=== PATIENT | female | born 1970 | race Caucasian/White ===

== ENCOUNTER 2020-11-30 09:45 | Emergency (ER) | payer OTHER, SELFPAY ==
--- NOTE | ~2020-11-30 | XR_ITS ---
XR ribs RT 2V w CXR 2V DATE: 11/30/2020 10:20 INDICATION: Fall. Lateral right sided chest injury, pain TECHNIQUE: PA and lateral chest. 3 views of the right ribs. COMPARISON: 12/08/2015 2 view chest FINDINGS: Right cervical rib. Old healed posterolateral right third through sixth rib fractures. No recent right rib fracture is noted. Normal heart size. No hilar or mediastinal enlargement. No pulmonary infiltrate or consolidation, pleural effusion or pulmonary vascular congestion or pneumo thorax. IMPRESSION: Old posterolateral right third through sixth rib fractures No recent right rib fracture is noted Right cervical rib No active cardiopulmonary disease Reviewed, dictated and finalized at location B. [facility] [employer]
[2020-11-30 09:48] VITALS: BP 161/80; PULSE 80; RESP 18; TEMP 36.7; O2SAT 100
[2020-11-30] MEDS: KETOROLAC 30 MG/ML VIAL (*BKC) IM (11:38)
--- NOTE | 2020-11-30 11:42 | ED.GENADULT ---
HPI - General Adult General Chief complaint: Fall Stated complaint: fall Time Seen by Provider: 11/30/20 10:10 Source: patient Mode of arrival: ambulatory Limitations: no limitations History of Present Illness HPI narrative: Patient presents with chief complaint of right rib and chest pain after sliding on black ice on the sidewalk prior to arrival and falling onto the area. Patient reports she feels some soreness with breathing but no shortness of breath. Patient reports tenderness with palpation to the area under the right breast. She denies any head impact, loss of consciousness, change in vision or hearing, nausea, vomiting, chest pain or any other symptoms. Patient reports she did fall and injured the area in [facility] many years ago but denies any known fractures or other injuries. Patient states that she is a daily smoker. Related Data Allergies Allergy/AdvReac Type Severity Reaction Status Date / Time No Known Allergies Allergy Mild Verified 07/13/17 12:22 Review of Systems Review of Systems: Narrative: CONSTITUTIONAL: Denies fever, chills, or sweats. EYES: Denies visual changes, redness, or discharge. ENT: Denies rhinorrhea, congestion, sore throat, or otalgia. CARDIOVASCULAR: Reports right rib and chest wall pain denies chest pain, palpitations, or edema. RESPIRATORY: Denies cough or dyspnea. GASTROINTESTINAL: Denies abdominal pain, nausea, vomiting, or diarrhea. GENITOURINARY: Denies dysuria or hematuria. SKIN: Denies rash or itching. MUSCULOSKELETAL: Denies back pain, joint pain, or myalgia. NEUROLOGIC: Denies headache, numbness, dizziness, or weakness. PSYCHIATRIC: Denies anxiety or depression. [facility] Family History Family History (Updated 11/29/18 @ 10:10 by DOCTOR UNKNOWN) Father Hypertension Family history of elevated blood lipids Grandparent Cerebrovascular accident Family history of Parkinson's disease Family history of chronic obstructive pulmonary disease Family history of Alzheimer's disease Family history of emphysema Family history of dementia Other Carcinoma of colon Diabetes mellitus Family history of hypercholesterolemia Family history of seizure disorder Social History Social History Smoking status: Smoker, status unknown Alcohol intake: current Exam Narrative: Exam Narrative: GENERAL: Well-appearing, well-nourished, and in no acute distress. HEAD: Normocephalic, atraumatic. EYES: PERRLA and EOMI. NECK: Supple. No adenopathy or masses. No carotid bruits or JVD CHEST: Tenderness to palpation under right breast and laterally. clear to auscultation. No respiratory distress. No wheezes rales or rhonchi. No flail chesting noted. HEART: Regular rate and rhythm. No murmur heard. Normal peripheral pulses. ABDOMEN: Soft, nontender, nondistended, normal active bowel sounds. EXTREMITIES: Normal range of motion. No edema. SKIN: Warm, dry, no rash. NEURO: No focal deficits. Alert and oriented x3. PSYCH: Normal mood and affect. Course Vital Signs Vital signs: Vital Signs Temperature 98.1 F 11/30/20 09:48 Pulse Rate 80 11/30/20 09:48 Respiratory Rate 18 11/30/20 09:48 Blood Pressure 161/80 H 11/30/20 09:48 Pulse Oximetry 100 11/30/20 09:48 Temperature 98.1 F 11/30/20 09:48 Pulse Rate 80 11/30/20 09:48 Respiratory Rate 18 11/30/20 09:48 Blood Pressure 161/80 H 11/30/20 09:48 Pulse Oximetry 100 11/30/20 09:48 Medical Decision Making MDM Narrative Medical decision making narrative: All fractures were noted on x-ray but not any acute fractures. Discussed with patient the old fractures noted and she states she fell previously injuring the area but did not know that the ribs are broken. Patient is not having any shortness of breath or difficulty taking deep breaths. Patient does have some soreness to the area. Discussed the importance of taking this. Discussed smoking cessation discussed following up with her primary care if
== END 2020-11-30 12:04 | disposition home or self-care (01) ==
PROVIDERS: Emergency Provider Emergency Medicine; PCP Family Medicine
DX: S20.211A Contusion of right front wall of thorax, initial encounter (principal); S23.41XA Sprain of ribs, initial encounter; W00.0XXA Fall on same level due to ice and snow, initial encounter
CPT/HCPCS: 71046; 71100; 96372; 99283; J1885

== ENCOUNTER 2023-03-19 07:07 | Day surgery (SDC) | payer OTHER, SELFPAY ==
[2023-03-05 09:59] VITALS: BMI 30.8
[2023-03-19 07:40] VITALS: BP 153/108; PULSE 68; RESP 20; TEMP 36.7; O2SAT 100
[2023-03-19] MEDS: LACTATED RINGERS 1,000 ML 150 ML IV CONT (08:13)
--- NOTE | 2023-03-19 08:24 | WPDANESEPPF ---
Anes - Initial Pre Proc Eval Procedure: Operation Date: 03/19/23 09:00 Proposed Procedures p Screening Colonoscopy - Deni Amezquita MD Date/Time: 03/19/23 08:24 Surgeon: Deni Amezquita MD Pre Op Diagnosis: Neoplam Screening Patient Data Age: 52 Gender: F Height: 1.65 m Weight: 84.3 kg Last Vital Signs Temp 36.7 C 03/19/23 07:40 Pulse 68 03/19/23 07:40 Resp 20 03/19/23 07:40 BP 153/108 H 03/19/23 07:40 Pulse Ox 100 03/19/23 07:40 O2 Del Method Room Air 03/19/23 07:40 Allergies Allergy/AdvReac Type Severity Reaction Status Date / Time No Known Allergies Allergy Mild Verified 03/19/23 08:08 Home Medications Medication Instructions Recorded Confirmed Type naproxen 500 mg tablet 500 mg PO BID PRN pain #20 tabs 11/30/20 03/19/23 Rx sodium,potassium,mag sulfates 17.5 See Rx Instructions PO .COMPLEX 02/12/23 03/19/23 Rx gram-3.13 gram-1.6 gram oral soln #354 mL (Suprep Bowel Prep Kit) Patient hx anesthesia problems: none Family hx anesthesia problems: none Results Review: All pre-operative results and documents have been reviewed as part of the pre-operative evaluation. [facility] Past Medical History Medical History BMI 27.0-27.9,adult BMI 30.0-30.9,adult Essential hypertension Screen for colon cancer Screening for lipid disorders Screening mammogram, encounter for Tobacco abuse Surgical History Surgical History (Updated 03/19/23 @ 08:27 by Raul Singh MD) H/O wrist surgery History of tubal ligation Family History Family History Father Hypertension Family history of elevated blood lipids Grandparent Cerebrovascular accident Family history of Parkinson's disease Family history of chronic obstructive pulmonary disease Family history of Alzheimer's disease Family history of emphysema Family history of dementia Other Carcinoma of colon Diabetes mellitus Family history of hypercholesterolemia Family history of seizure disorder Social History Social History Years smoked: 20 Smoking status: Current every day smoker Tobacco type: cigarettes Alcohol intake: current Substance use: never Substance use type: does not use Lack of Transportation: No Lack of Food: Never True Current Housing: I Have Housing Concerned About Future Housing: No Difficulty Paying Gas/Electric Bills: No Difficulty Paying for Meds: No Currently Unemployed: No Education: Trade/Vocational Certificate Difficulty w/ Childcare or Family Care: No Living arrangements: with family Spiritual care concerns: No Anes - Eval Final PreProcedure Day of Procedure 03/19/23 08:24 Patient weight: obese Heart: regular rate and rhythm Lungs: clear to auscultation Airway: Mallampati scale class II Neurological: alert and oriented Last oral intake: >/= 8 hours ASA classification: II Emergent: no Anesthetic plan: proceed Anesthesia type and monitoring: general GIVS and standard monitoring Results Review: All pre-operative results and documents have been reviewed as part of the pre-operative evaluation. Informed Consent: The patient's anesthetic plan and its attendant risks and benefits were discussed with the patient/family/POA. Questions were solicited and answers provided to the satisfaction of the patient/family/POA.
--- NOTE | 2023-03-19 08:28 | PM.HPGS ---
History of Present Illness History of Present Illness Consent: Risks, benefits, and alternatives have been discussed and questions answered. Patient agrees to proceed with procedure. Chief complaint: Neoplam Screening Narrative: Ashly Greene is a 52 year old female Presents for screening colonoscopy. Patient's current weight appetite and bowel movements are normal. Patient denies abdominal pain. She has had no bleeding. Family history is significant that her mother had colon cancer. Review of Systems Review of Systems: Review of systems noncontributory. [facility] Past Medical History Medical History BMI 27.0-27.9,adult BMI 30.0-30.9,adult Essential hypertension Screen for colon cancer Screening for lipid disorders Screening mammogram, encounter for Tobacco abuse Surgical History Surgical History (Updated 03/19/23 @ 08:27 by Raul Singh MD) H/O wrist surgery History of tubal ligation Family History Family History Father Hypertension Family history of elevated blood lipids Grandparent Cerebrovascular accident Family history of Parkinson's disease Family history of chronic obstructive pulmonary disease Family history of Alzheimer's disease Family history of emphysema Family history of dementia Other Carcinoma of colon Diabetes mellitus Family history of hypercholesterolemia Family history of seizure disorder Social History Social History Years smoked: 20 Smoking status: Current every day smoker Tobacco type: cigarettes Alcohol intake: current Substance use: never Substance use type: does not use Lack of Transportation: No Lack of Food: Never True Current Housing: I Have Housing Concerned About Future Housing: No Difficulty Paying Gas/Electric Bills: No Difficulty Paying for Meds: No Currently Unemployed: No Education: Trade/Vocational Certificate Difficulty w/ Childcare or Family Care: No Living arrangements: with family Spiritual care concerns: No Meds Home Medications and Allergies Home Medications Medication Instructions Recorded Confirmed Type naproxen 500 mg tablet 500 mg PO BID PRN pain #20 tabs 11/30/20 03/19/23 Rx sodium,potassium,mag sulfates 17.5 See Rx Instructions PO .COMPLEX 02/12/23 03/19/23 Rx gram-3.13 gram-1.6 gram oral soln #354 mL (Suprep Bowel Prep Kit) Allergies Allergy/AdvReac Type Severity Reaction Status Date / Time No Known Allergies Allergy Mild Verified 03/19/23 08:08 Vital Signs Vital Signs - 24 hr 03/19/23 07:40 Temperature 98.0 F Pulse Rate 68 Respiratory Rate 20 Blood Pressure 153/108 H Pulse Oximetry 100 Oxygen Delivery Room Air Exam Narrative: Physical exam reveals patient to be alert. Vital signs stable. HEENT exam is unremarkable. Patient is anicteric. Lungs are clear to auscultation and percussion. Heart is without murmur or extra sounds. Abdomen bowel sounds are present soft nontender with no organomegaly. Digital external rectal exam is normal. Assessment and Plan Assessment and plan (1) Screen for colon cancer: Code(s): Z12.11 - Encounter for screening for malignant neoplasm of colon Status: Acute Assessment and Plan: Patient presents for screening colonoscopy. She does have a family history of colon cancer in mother. Plan for surveillance colonoscopy at 5 year intervals.
[2023-03-19 09:28] VITALS: BP 114/88; PULSE 81; RESP 20; O2SAT 98
--- NOTE | 2023-03-19 09:28 | WPDANESPN ---
Anes - Prog Note Post-Op Date/Time: 03/19/23 09:28 Cardiovascular status: normal Respiratory status: normal Airway patency: baseline Mental status: baseline Post-Op hydration status: normal Vital Signs: Last Vital Signs Temp 36.7 C 03/19/23 07:40 Pulse 68 03/19/23 07:40 Resp 20 03/19/23 07:40 BP 153/108 H 03/19/23 07:40 Pulse Ox 100 03/19/23 07:40 O2 Del Method Room Air 03/19/23 07:40 Pain Score (VAS): 0/10 I/O: Intake & Output 03/18/23 03/19/23 03/19/23 23:59 07:59 15:59 Intake Total 600 Balance 600 Patient Feedback: Patient satisfied with anesthetic care.
[2023-03-19 09:38] VITALS: BP 151/103; PULSE 70; RESP 20; O2SAT 99
[2023-03-19 09:48] VITALS: BP 165/107; PULSE 72; RESP 22; O2SAT 100
== END 2023-03-19 10:04 | disposition home or self-care (01) ==
PROVIDERS: PCP Family Medicine; Visit Provider Internal Medicine Gastroenterology
PROC: 0DJD8ZZ Inspection of Lower Intestinal Tract, Via Natural or Artificial Opening Endoscopic (ICD-10-PCS; CPT 45378; principal; 2023-03-19 09:00)
DX: Z12.11 Encounter for screening for malignant neoplasm of colon (principal)
CPT/HCPCS: 45385

== ENCOUNTER 2023-03-19 08:00 | Outpatient (NON) | payer OTHER, SELFPAY | END 2023-03-19 08:01 | disposition home or self-care (01) | LOC: ANHLAB 03-20 10:12 | PROVIDERS: PCP Family Medicine; Visit Provider Internal Medicine Gastroenterology | DX: Z12.11 Encounter for screening for malignant neoplasm of colon (principal) | CPT/HCPCS: 88305 ==